=== PATIENT | female | born 1960 | race Caucasian/White ===

== ENCOUNTER 2016-05-06 14:13 | Emergency (ER) | payer OTHER ==
[2016-05-06 14:49] VITALS: BP 135/78; PULSE 90; RESP 16; TEMP 98.4; O2SAT 96
[2016-05-06] MEDS ORDERED: TDAP Vaccine 0.5 mL Syr IM ONE (15:03)
[2016-05-06] MEDS ORDERED: Tmp-Smz 800 mg-160 mg DS Tab PO STA (15:07)
--- NOTE | 2016-05-06 15:16 | ED PDOC ---
Arrival/HPI - General Chief Complaint: Abnormal Skin Integrity Time Seen by Provider: 05/06/16 14:51 Historian: Patient - History of Present Illness Narrative History of Present Illness (Text): 05/06/16 15:13 55-year-old female presents today with a laceration between the web spacing of the first and second fingers of the right hand. Patient states last night she was washing a dish around 10 PM and didn't realize that the glass was broken. Patient states she was cleaning the glass she cut her hand on the broken edge of the glass. Patient states she cleaned the wound well last night and they just the wound last night and she presents today for evaluation. Unsure of her last tetanus shot. Patient denies fevers or chills. Complaining of pain to the laceration site. Patient denies numbness weakness or tingling in the extremity. pt denies foreign body sensation. No other complaints Past Medical History - Provider Review Nursing Documentation Reviewed: Yes - Travel History Have you recently traveled outside [place] w/in the past 3 mons?: No - Infectious Disease Hx of Infectious Diseases: None - Reproductive Menopause: Yes - Endocrine/Metabolic Hx Diabetes Mellitus Type 2: Yes - Psychiatric Hx Substance Use: No Family/Social History - Physician Review Nursing Documentation Reviewed: Yes Family/Social History: Unknown Family HX Smoking Status: Unknown If Ever Smoked Hx Alcohol Use: No Hx Substance Use: No Allergies/Home Meds Allergies/Adverse Reactions: Allergies No Known Allergies Allergy (Verified 05/06/16 14:49) Review of Systems - Review of Systems Constitutional: absent: Fevers Respiratory: absent: SOB, Cough Cardiovascular: absent: Chest Pain, Palpitations Musculoskeletal: Arthralgias. absent: Neck Pain Skin: Laceration Psychiatric: absent: Anxiety Physical Exam Vital Signs Reviewed: Yes Vital Signs Temp Pulse Resp BP Pulse Ox 05/06/16 14:44 98.4 F 90 16 135/78 96 Temperature: Afebrile Blood Pressure: Normal Pulse: Regular Respiratory Rate: Normal Appearance: Positive for: Well-Appearing, Non-Toxic, Comfortable Pain Distress: None Mental Status: Positive for: Alert and Oriented X 3 - Systems Exam Head: Present: Atraumatic Neck: Present: Normal Range of Motion Respiratory/Chest: Present: Clear to Auscultation Cardiovascular: Present: Regular Rate and Rhythm Upper Extremity: Present: Normal ROM, NORMAL PULSES, Tenderness (right hand; there is a 2.5cm linear superficial laceration along the webspacing of the 1st and 2nd fingers. no active bleeding; + maceration. no erythema; no warmth. full rom of hand. sensation and distal pulses intact. cap refill < 2. no visualized foreign body. ), Neurovascularly Intact, Capillary Refill < 2s. No: Swelling, Erythema, Deformity Medical Decision Making ED Course and Treatment: 05/06/16 15:16 Patient is nontoxic well appearing in no distress. Vital signs are stable. Wound irrigated well with high pressure irrigation. Tetanus updated Tylenol Keflex and Bactrim given by mouth X-ray of the right hand: No visualized foreign body or fracture Wound is greater than 12 hours old. Unable to suture. We will allow to heal by secondary intention. Bacitracin and dressing applied case discussed with dr. Nguyen; will have patient f/u in the office tomorrow for close follow up. i have discussed the importance of close follow up with the patient and her . i have advised the patient that since she is a diabetic she is at higher risk of infection and she must check the would frequently to evaluate for signs of infection. i have advised the patient to return immediately if signs of infection develop; high fevers, increasing pain, redness, swelling or if purulent discharge develop. i have advised patient to take medications as prescribed. i have advised f/u with dr. gnuyen tomorrow. Patient was advised to keep the wound clean and dry, apply bacitracin twice daily. Advised to return immediately if signs of infection develop or return if any other concerning symptoms develop Impression: Laceration, hand Tylenol every 4 hours as needed for pain Bactrim DS one tablet twice daily x 7 days keflex; 1 capsule 4 times daily x 7 days. Keep the wound clean and dry, apply bacitracin twice daily Return immediately if signs of infection develop: High fevers, increasing pain, redness, swelling, purulent discharge Follow up with the hand specialist within the next 2 days. Followup with primary care physician tomorrow. Return if any other concerning symptoms develop - RAD Interpretation Radiology Orders: 05/06/16 15:04 HAND RIGHT 3 VIEWS [RAD] Stat - Medication Orders Current Medication Orders: Discontinued Medications Acetaminophen (Tylenol 325mg Tab) 975 mg PO STAT STA Stop: 05/06/16 15:04 Cephalexin Monohydrate (Keflex) 500 mg PO STAT STA PRN Reason: Protocol Stop: 05/06/16 15:04 Tetanus/Reduced Diphtheria/Acell Pertussis (Boostrix Vaccine Inj) 0.5 ml IM .ONCE ONE Stop: 05/06/16 15:04 Trimethoprim/Sulfamethoxazole (Bactrim Ds Tab) 1 tab PO STAT STA PRN Reason: Protocol Stop: 05/06/16 15:08 Disposition/Present on Arrival - Present on Arrival Any Indicators Present on Arrival: No History of DVT/PE: No History of Uncontrolled Diabetes: No Urinary Catheter: No History of Decub. Ulcer: No History Surgical Site Infection Following: None - Disposition Have Diagnosis and Disposition been Completed?: Yes Diagnosis: Hand laceration Disposition Time: 15:21 Patient Plan: Discharge Condition: GOOD Discharge Instructions (ExitCare): Laceration Without Closure (ED) Additional Instructions: Tylenol every 4 hours as needed for pain Bactrim DS one tablet twice daily x 7 days keflex; 1 capsule 4 times daily x 7 days. Keep the wound clean and dry, apply bacitracin twice daily Return immediately if signs of infection develop: High fevers, increasing pain, redness, swelling, purulent discharge Follow up with the hand specialist within the next 2 days. Followup with primary care physician tomorrow. Return if any other concerning symptoms develop Prescriptions: Bacitracin 1 appl TP BID #1 tube Sulfamethoxazole/Trimethoprim [Bactrim DS 800 mg-160 mg] 1 tab PO BID #14 tab Cephalexin [Keflex] 500 mg PO QID #28 capsule Referrals: Christen Nguyen MD [Primary Care Provider] - Follow up with primary Giovanni Elder MD [Staff Provider] - Follow up with primary Forms: WORK NOTE
--- NOTE | 2016-05-06 17:00 | RAD ---
PROCEDURE: Right Hand Radiographs. HISTORY: laceration web spacing 1st-2nd fingers COMPARISON: None. FINDINGS: BONES: Normal. No fracture. JOINTS: Normal. No osteoarthritic changes. SOFT TISSUES: No evidence of radiopaque foreign body or soft tissue pneumatosis. OTHER FINDINGS: None. IMPRESSION: No evidence of acute pathology in the right hand.
== END 2016-05-06 16:00 | disposition home or self-care (01) ==
LOC: ED 14:13
DX: S61.411A Laceration without foreign body of right hand, initial encounter (principal); W25.XXXA Contact with sharp glass, initial encounter; Z23 Encounter for immunization; E11.9 Type 2 diabetes mellitus without complications

== ENCOUNTER 2016-08-06 22:45 | Emergency (ER) | payer OTHER ==
[2016-08-07 00:31] VITALS: BMI 27.9
[2016-08-07 00:34] VITALS: TEMP 97.8
[2016-08-07] MEDS ORDERED: Oxycodone/Acetaminophen 5/325 mg Tab PO STA (01:18)
--- NOTE | 2016-08-07 02:17 | ED PDOC ---
Arrival/HPI - General Chief Complaint: Lower Extremity Problem/Injury Time Seen by Provider: 08/07/16 01:18 Historian: Patient - History of Present Illness Narrative History of Present Illness (Text): 08/07/16 01:07 A 55 year old female presents to the emergency department after a mechanical fall that happened 9 hours ago complaining of right foot pain and left knee pain. Patient reports she was walking and tripped over something. Patient denies any headache, fever, shortness of breath, loss of consciousness or any other complaints at this time. Symptom Onset: Sudden Symptom Course: Unchanged Context: Home Associated Symptoms (Text): none Past Medical History - Provider Review Nursing Documentation Reviewed: Yes - Infectious Disease Hx of Infectious Diseases: None - Cardiac Hx Cardiac Disorders: No - Pulmonary Hx Respiratory Disorders: No - Neurological Hx Neurological Disorder: No - HEENT Hx HEENT Disorder: No - Renal Hx Renal Disorder: No - Endocrine/Metabolic Hx Diabetes Mellitus Type 1: Yes (insulin dependant) Hx Diabetes Mellitus Type 2: Yes - Hematological/Oncological Hx Blood Disorders: No - Integumentary Hx Dermatological Disorder: No - Musculoskeletal/Rheumatological Hx Musculoskeletal Disorders: No - Gastrointestinal Hx Gastrointestinal Disorders: No - Genitourinary/Gynecological Hx Genitourinary Disorders: No - Psychiatric Hx Psychophysiologic Disorder: No Hx Substance Use: No - Anesthesia Hx Anesthesia: No Family/Social History - Physician Review Nursing Documentation Reviewed: Yes Family/Social History: No Known Family HX Smoking Status: Unknown If Ever Smoked Hx Alcohol Use: No Hx Substance Use: No Allergies/Home Meds Allergies/Adverse Reactions: Allergies No Known Allergies Allergy (Verified 08/07/16 00:30) Home Medications: Home Meds Medication Instructions Recorded Confirmed Glimepiride [Glimepiride] 2 mg PO BID 08/07/16 08/07/16 Insulin Regular [HumuLIN R] 08/07/16 MetFORMIN [glucoPHAGE] 1,000 mg PO BID 08/07/16 08/07/16 Review of Systems - Physician Review All systems were reviewed & negative as marked: Yes - Review of Systems Constitutional: absent: Fevers Respiratory: absent: SOB Musculoskeletal: Other (Right ankle pain and left knee pain) Neurological: absent: Headache Physical Exam Vital Signs Reviewed: Yes Vital Signs Temp Pulse Resp BP Pulse Ox 08/07/16 02:37 77 18 133/75 100 08/07/16 00:33 97.8 F 79 16 116/82 98 Temperature: Afebrile Blood Pressure: Normal Pulse: Regular Respiratory Rate: Normal Appearance: Positive for: Well-Appearing, Non-Toxic, Comfortable Pain Distress: None Mental Status: Positive for: Alert and Oriented X 3 - Systems Exam Head: Present: Atraumatic, Normocephalic Pupils: Present: PERRL Extroacular Muscles: Present: EOMI Conjunctiva: Present: Normal Mouth: Present: Moist Mucous Membranes Neck: Present: Normal Range of Motion Respiratory/Chest: Present: Clear to Auscultation, Good Air Exchange. No: Respiratory Distress, Accessory Muscle Use Cardiovascular: Present: Regular Rate and Rhythm, Normal S1, S2. No: Murmurs Abdomen: No: Tenderness, Distention, Peritoneal Signs Upper Extremity: Present: Normal Inspection. No: Cyanosis, Edema Lower Extremity: Present: NORMAL PULSES, Normal ROM, Tenderness (base of 5th metatarsal and dorsal aspect of R foot), Swelling (ecchymosis of dorsal lateral portion of R foot). No: Edema Neurological: Present: GCS=15, Motor Func Grossly Intact, Normal Sensory Function Skin: Present: Warm, Dry Psychiatric: Present: Alert, Oriented x 3 Medical Decision Making ED Course and Treatment: 08/07/16 02:25 Radiology of right foot: Jacob fracture of 5th metatarsal, interpreted by me. splint placed follow up w ortho tomorrow return prec advised - RAD Interpretation Radiology Orders: 08/07/16 01:18 FOOT RIGHT 3 VIEWS ROUTINE [RAD] Stat - Medication Orders Current Medication Orders: Discontinued Medications Oxycodone/Acetaminophen (Percocet 5/325 Mg Tab) 1 tab PO STAT STA Stop: 08/07/16 01:19 Last Admin: 08/07/16 01:26 Dose: 1 tab - Scribe Statement The provider has reviewed the documentation as recorded by the Marilynn Andrews Provider Scribe Attestation: All medical record entries made by the Scribe were at my direction and personally dictated by me. I have reviewed the chart and agree that the record accurately reflects my personal performance of the history, physical exam, medical decision making, and the department course for this patient. I have also personally directed, reviewed, and agree with the discharge instructions and disposition. Disposition/Present on Arrival - Present on Arrival Any Indicators Present on Arrival: No History of DVT/PE: No History of Uncontrolled Diabetes: No Urinary Catheter: No History of Decub. Ulcer: No History Surgical Site Infection Following: None - Disposition Have Diagnosis and Disposition been Completed?: Yes Diagnosis: Jacob fracture Disposition: HOME/ ROUTINE Disposition Time: 02:58 Condition: STABLE Discharge Instructions (ExitCare): Splint Care (ED) Additional Instructions: Please follow up with the skin care specialist on Tuesday. Return to the ER for any worsening symptoms or for any other concerns. Prescriptions: Acetaminophen with Codeine [Tylenol with Codeine #3 Tablet] 1 each PO Q4H PRN # 10 tablet PRN Reason: Pain, Moderate (4-7) Referrals: Christen Nguyen MD [Primary Care Provider] - Follow up with primary Wally Saravia III, MD [Medical Doctor] - Follow up with primary
[2016-08-07 02:40] VITALS: BP 133/75; PULSE 77; RESP 18; O2SAT 100
--- NOTE | 2016-08-07 08:57 | RAD ---
PROCEDURE: Right Foot Radiographs. HISTORY: fall pain COMPARISON: Right foot radiographs performed 06/20/14 FINDINGS: BONES: Displaced fracture deformity of the proximal 5th metatarsal with intra-articular extension. JOINTS: No dislocation. SOFT TISSUES: Soft tissue swelling. No evidence of radiopaque foreign body. OTHER FINDINGS: None. IMPRESSION: Displaced fracture deformity of the proximal 5th metatarsal with intra-articular extension. Associated soft tissue swelling. Case discussed with Dr. Whitfield on 08/07/16 at 8:54 a.m.
== END 2016-08-07 02:58 | disposition home or self-care (01) ==
LOC: ED 22:45
DX: S92.351A Displaced fracture of fifth metatarsal bone, right foot, initial encounter for closed fracture (principal); W01.0XXA Fall on same level from slipping, tripping and stumbling without subsequent striking against object, initial encounter; Y93.89 Activity, other specified; Y92.89 Other specified places as the place of occurrence of the external cause